=== PATIENT | male | born 1940 | race Caucasian/White ===

== ENCOUNTER → 2023-01-14 | Outpatient (CLI) | payer OTHER ==
[~2023-01-14] MED LIST: LEXISCAN IV ONE
--- NOTE | 2023-01-15 02:18 | STRESS ---
DATE OF SERVICE: 01/14/2023 DICTATOR NAME: DANNY AMANDACARYLNabil CARDIAC STRESS TEST INDICATION: Chest pain. FINDINGS: Baseline EKG shows normal sinus rhythm with left atrial abnormality. Stress EKG shows normal sinus rhythm, unchanged from baseline. At the end of recovery, EKG shows normal sinus rhythm, unchanged from baseline. Baseline heart rate is 67 beats per minute and dania to 76 beats per minute during stress. At the end of recovery, the heart rate was 83 beats per minute. Baseline blood pressure is 128/69 and remained the same during stress. At the end of recovery, the blood pressure is 136/73. Blood pressure and heart rate were appropriate for stress. There were no significant symptoms noted during stress. There were no arrhythmias noted during stress. EKG portion of stress test is negative for myocardial ischemia. Nuclear images were obtained with a rest dose of 9.76 mCi technetium-99 sestamibi, and a stress dose of 31.8 mCi technetium-99 sestamibi. Nuclear images revealed a large area of periinfarct ischemia involving the inferior wall. Left ventricular ejection fraction is 62%. EDV is 72 mL, ESV is 28 mL. The left ventricle is normal in size. Gated motion images shows normal wall motion across all segments of the left ventricle. TID is 1.3. There is no evidence of diaphragmatic attenuation artifact. IMPRESSION: * There is a large area of periinfarct ischemia involving the inferior wall. * This is an abnormal study. RECOMMENDATION: Recommend left heart catheterization. Bhavin HENSON D.O. DR: MOLLY TID: [id number] RECEIPT: [id number]
== END | disposition home or self-care (01) ==
LOC: RAD 08:30
PROVIDERS: ATTEND Nurse Practitioner Family
DX: Z13.6 Encounter for screening for cardiovascular disorders (principal); I25.89 Other forms of chronic ischemic heart disease; R07.9 Chest pain, unspecified
CPT/HCPCS: 78452; 93017; A9500